=== PATIENT | male | born 1955 | race Caucasian/White ===

== ENCOUNTER 2018-01-01 20:57 | Emergency (ER) | payer OTHER | END 2018-01-02 01:30 | disposition other institution (70) | LOC: ED 20:57 | DX: Z02.89 Encounter for other administrative examinations (principal) ==

== ENCOUNTER 2018-01-01 20:57 | Emergency (ER) | payer OTHER ==
[~2018-01-01] VITALS: Ht 182.9 cm; Wt 81.6 kg
[2018-01-01 21:09] VITALS: BP 126/87; Ht 182.9 cm; Wt 81.6 kg
== END 2018-01-02 01:30 | disposition other institution (70) ==
LOC: ED 20:57
DX: S76.011A Strain of muscle, fascia and tendon of right hip, initial encounter (principal); J45.909 Unspecified asthma, uncomplicated; V49.9XXA Car occupant (driver) (passenger) injured in unspecified traffic accident, initial encounter; Y93.I9 Activity, other involving external motion; Y92.89 Other specified places as the place of occurrence of the external cause; Y99.8 Other external cause status